=== PATIENT | male | born 1995 | race Caucasian/White ===

== ENCOUNTER 2016-11-13 00:01 | Observation (INO) | payer OTHER ==
[~2016-11-13] VITALS: Ht 182.9 cm; Wt 78.6 kg
[2016-11-14] VITALS (708 sets, daily range): BP systolic 102–117; BP diastolic 49–75; PULSE 66–122; TEMP 98–98.4; O2SAT 91–100
[2016-11-14] MEDS ORDERED: MOTRIN 800800 MG/TAB PO (02:45)
[2016-11-14 03:41] LABS: INR 1.1 (0.8-3.0); PROTHROMBIN TIME 12.6 SECONDS (9.7-12.8)
[2016-11-14 03:44] LABS: PARTIAL THROMBOPLASTIN TIME 33.7 SECONDS (26.0-37.0)
[2016-11-14 03:45] LABS: MAGNESIUM 2.1 mg/dL (1.6-2.3)
[2016-11-14 04:18] LABS: TROPONIN-I 0.041 ng/mL (0.000-0.034)
[2016-11-14] MEDS ORDERED: ASPI325T6 PO (16:08)
== END 2016-11-14 17:10 | disposition home or self-care (01) ==
LOC: IMCU 00:01 → ICU 11-14 15:07
PROVIDERS: Nurse Practitioner Family
DX: I20.9 Angina pectoris, unspecified (principal); Z79.01 Long term (current) use of anticoagulants; Z82.49 Family history of ischemic heart disease and other diseases of the circulatory system; I07.1 Rheumatic tricuspid insufficiency; I45.10 Unspecified right bundle-branch block
CPT/HCPCS: 99222-AI; A9502; G0378; G0379; J1650; J2270; J2785; J7030

== ENCOUNTER → 2016-11-16 | Outpatient (CLI) | payer OTHER ==
[~2016-11-16] MED LIST: ASPI325T6 PO; LEXAPRO 10MG10 MG PO; MOTRIN 800800 MG/TAB PO; REQUIP0.25 MG PO; ZANTAC 150MG T150 MG PO
== END ==
LOC: COL.CARD 13:58
DX: R07.9 Chest pain, unspecified (principal)

== ENCOUNTER 2017-01-19 03:30 | Observation (INO) | payer OTHER ==
[~2017-01-19] VITALS: Ht 172.7 cm; Wt 80.9 kg
[~2017-01-19 03:30] MED LIST changes: -LEXAPRO 10MG10 MG PO; -REQUIP0.25 MG PO; -ZANTAC 150MG T150 MG PO
[2017-01-21] MEDS ORDERED: ZANTAC 150MG T150 MG PO (09:54)
[2017-01-21 10:25] VITALS: BP 111/59; PULSE 64
[2017-01-21 12:43] VITALS: BP 112/51; PULSE 80; TEMP 98.4
[2017-01-21 15:26] VITALS: BP 114/67; PULSE 71; TEMP 98.1
[2017-01-21 16:28] VITALS: BP 118/59; PULSE 55
[2017-01-21 17:42] VITALS: BP 114/55; PULSE 59
[2017-01-21 22:14] VITALS: BP 110/58; PULSE 50; TEMP 98.2
[2017-01-22] VITALS (7 sets, daily range): BP systolic 102–119; BP diastolic 46–70; PULSE 47–76; TEMP 97.5–98.3
[2017-01-23 04:06] VITALS: BP 100/48; PULSE 83; TEMP 97.6
[2017-01-23 08:05] VITALS: BP 109/60; PULSE 86; TEMP 98.1
[2017-01-23 11:36] VITALS: BP 106/64; PULSE 57; TEMP 98.2
[2017-01-23 15:54] VITALS: BP 117/71; PULSE 87; TEMP 98.2
[2017-01-23 19:37] VITALS: BP 123/53; PULSE 75; TEMP 97.8
[2017-01-23 23:22] VITALS: BP 142/84; PULSE 99; TEMP 98.6
[2017-01-24 03:18] VITALS: BP 115/59; PULSE 59; TEMP 97.4
[2017-01-24 08:19] VITALS: BP 125/59; PULSE 66; TEMP 98.8
[2017-01-24 12:00] VITALS: BP 112/63; PULSE 64; TEMP 98
[2017-01-24] MEDS ORDERED: LEXAPRO 10MG10 MG PO (17:36)
[2017-01-24] MEDS ORDERED: REQUIP0.25 MG PO (17:38)
== END 2017-01-24 17:45 | disposition home or self-care (01) ==
LOC: MEDICAL 01-21 03:30
PROVIDERS: Psychiatry & Neurology Neurology
DX: R07.89 Other chest pain (principal); R55 Syncope and collapse; F33.1 Major depressive disorder, recurrent, moderate; F41.1 Generalized anxiety disorder; G25.81 Restless legs syndrome; Z82.49 Family history of ischemic heart disease and other diseases of the circulatory system; G47.10 Hypersomnia, unspecified
CPT/HCPCS: 90791-AI; G0378; G0379

== ENCOUNTER 2017-06-24 12:39 | Outpatient (CLI) | payer OTHER ==
[~2017-06-24] VITALS: Ht 182.9 cm; Wt 77.0 kg
[~2017-06-24 12:39] MED LIST changes: +LEXAPRO 10MG10 MG PO; +REQUIP0.25 MG PO; +ZANTAC 150MG T150 MG PO
[2017-06-24 13:22] VITALS: BP 113/60; PULSE 67; TEMP 98.2
[2017-06-24] MEDS ORDERED: ZOLOFT 100MG100 MG PO (13:23)
[2017-06-24 13:32] LABS: HEMATOCRIT 41.7 % (36.0-47.0); HEMOGLOBIN 14.5 g/dl (12.5-16.1); MEAN CELL VOLUME 85 fl (80.0-95.0); MEAN CORPUSCULAR HEMOGLOBIN 30 pg (26.0-32.0); MEAN CORPUSCULAR HGB CONC 35 g/dl (33.0-37.0); PLATELET COUNT 289 K/mm3 (130-400); RED BLOOD COUNT 4.91 M/mm3 (4.20-5.60); REDCELL DISTRIBUTION WIDTH-CV 12.3 % (11.5-14.5)
[2017-06-24 15:01] VITALS: BP 110/70; PULSE 72; TEMP 98.2
== END 2017-06-24 15:05 | disposition home or self-care (01) ==
LOC: COL.CAR 12:39
PROVIDERS: Internal Medicine Interventional Cardiology
DX: I49.9 Cardiac arrhythmia, unspecified (principal); R00.2 Palpitations; R55 Syncope and collapse; Z82.49 Family history of ischemic heart disease and other diseases of the circulatory system